=== PATIENT | female | born 1935 ===

== ENCOUNTER 2017-10-07 10:57 | Emergency (ER) | payer OTHER ==
[~2017-10-07] VITALS: Ht 165.1 cm; Wt 74.8 kg
[~2017-10-07 10:57] MED LIST: ALDACTONE25 MG; ASPIR 8181 MG; CEFUROXIME250 MG PO; CHLORTHALIDONE25 MG; DIOVAN160 M1; PANADOL EXTRA500 MG; PEPCID40 MG PO; PROCARDIA90 MG/BLIS; PROVENTIL HFA6.7 GM IH; SINGULAIR10 MG; TAMOXIFEN CITRA20 MG; TYLENOL325 MG PO; ULTRACET PO
[2017-10-07] MEDS ORDERED: TOPROL XL25 M1 (11:10)
[2017-10-07] MEDS ORDERED: EVISTA60 MG (11:11)
== END 2017-10-08 09:08 | disposition home or self-care (01) ==
LOC: ER 10:57
DX: K86.1 Other chronic pancreatitis (principal); D13.6 Benign neoplasm of pancreas; K59.09 Other constipation; N28.1 Cyst of kidney, acquired; C50.919 Malignant neoplasm of unspecified site of unspecified female breast; I10 Essential (primary) hypertension

== ENCOUNTER 2017-10-11 12:08 | Inpatient (IN) | payer OTHER ==
[~2017-10-11] VITALS: Ht 172.7 cm; Wt 72.6 kg
[~2017-10-11 12:08] MED LIST changes: +EVISTA60 MG; +TOPROL XL25 M1
[2017-10-16] MEDS ORDERED: LORATADINE10 MG PO (09:28)
[2017-10-16] MEDS ORDERED: HYOSCYAMINE0.125 M1 SL (09:29)
== END 2017-10-16 11:22 | disposition home or self-care (01) | DRG 439 ==
LOC: ER 12:08 → SURG 20:05
PROC: BF37ZZZ Magnetic Resonance Imaging (MRI) of Pancreas (ICD-10-PCS; 2017-10-12)
PROC: 3E0436Z Introduction of Nutritional Substance into Central Vein, Percutaneous Approach (ICD-10-PCS; 2017-10-12)
PROC: 02HV33Z Insertion of Infusion Device into Superior Vena Cava, Percutaneous Approach (ICD-10-PCS; 2017-10-12)
PROC: 3E0F7GC Introduction of Other Therapeutic Substance into Respiratory Tract, Via Natural or Artificial Opening (ICD-10-PCS; 2017-10-13)
PROC: 0FJD8ZZ Inspection of Pancreatic Duct, Via Natural or Artificial Opening Endoscopic (ICD-10-PCS; principal; 2017-10-14)
DX: K85.80 Other acute pancreatitis without necrosis or infection (principal); J45.31 Mild persistent asthma with (acute) exacerbation; E86.0 Dehydration; E87.6 Hypokalemia; I10 Essential (primary) hypertension; D13.6 Benign neoplasm of pancreas; Z85.3 Personal history of malignant neoplasm of breast; K29.00 Acute gastritis without bleeding

== ENCOUNTER 2018-02-13 15:21 | Emergency (ER) | payer OTHER ==
[~2018-02-13] VITALS: Ht 175.3 cm; Wt 70.8 kg
[~2018-02-13 15:21] MED LIST changes: +HYOSCYAMINE0.125 M1 SL; +LORATADINE10 MG PO
[2018-02-13] MEDS ORDERED: CREON DR 6,0001 EACH (15:32)
== END 2018-02-13 20:01 | disposition home or self-care (01) ==
LOC: ER 15:21
DX: R10.13 Epigastric pain (principal); R11.0 Nausea

== ENCOUNTER 2018-02-25 10:22 | Inpatient (IN) | payer OTHER ==
[~2018-02-25] VITALS: Ht 175.3 cm; Wt 65.8 kg
[~2018-02-25 10:22] MED LIST changes: +CREON DR 6,0001 EACH
== END 2018-03-02 16:56 | disposition home or self-care (01) | DRG 440 ==
LOC: ER 10:22 → MEDJ 16:15
PROC: 3E0F7GC Introduction of Other Therapeutic Substance into Respiratory Tract, Via Natural or Artificial Opening (ICD-10-PCS; principal; 2018-02-25)
PROC: BW40ZZZ Ultrasonography of Abdomen (ICD-10-PCS; 2018-02-25)
PROC: BW25Y0Z Computerized Tomography (CT Scan) of Chest, Abdomen and Pelvis using Other Contrast, Unenhanced and Enhanced (ICD-10-PCS; 2018-02-25)
DX: K85.80 Other acute pancreatitis without necrosis or infection (principal); Z85.3 Personal history of malignant neoplasm of breast; E86.0 Dehydration; D13.6 Benign neoplasm of pancreas; N28.1 Cyst of kidney, acquired; J45.998 Other asthma; I10 Essential (primary) hypertension